=== PATIENT | male | born 1970 | race Caucasian/White ===

== ENCOUNTER 2017-08-07 10:12 | Emergency (ER) | payer BC ==
--- NOTE | 2017-08-07 10:22 | EDPHY ---
HPI/HX/ROS/PE/MDM Narrative: CHIEF COMPLAINT: Left arm dog bite HPI: The patient is a 47 y/o male complaining of a dog bite to his left upper arm 1 hour ago. While he was running, another persons dog tried to bite his face, and ended up biting the back of his left arm. He called the ranger and they are in charge of the case. He is unsure if the dog has had all of its shots. He is unsure if he is up to date on his tetanus vaccine. Denies fever, numbness, weakness, chest pain or other pertinent symptoms. REVIEW OF SYSTEMS: Aside from elements discussed in the HPI, a comprehensive 10-point review of systems was reviewed and is negative. PMH: Denies SOCIAL HISTORY: , lives in [place], works for [employer] PHYSICAL EXAM: General: Patient is alert, in no acute distress. Left arm: Dog bite to left triceps region, some skin break and contusion, no bleeding Neuro: Oriented x3. Normal motor function. Normal sensory function. Portions of this note were transcribed by an ED scribe. I personally performed the history, physical exam, and medical decision making; and confirm the accuracy of the information in the transcribed note. ED Course: Reassessed patient and discussed Augmentin prescription. Return precautions provided; patient is comfortable with this plan. MDM: Uncomplicated dog bite with no NV injur or need for repair. I will place patient on Augmentin prophylaxis. Law enforcement already involved and will be addressing vaccine status. General Time Seen by Provider: 08/07/17 10:20 Initial Vital Signs: Initial Vital Signs Temperature (C) 36.8 C 08/07/17 10:15 Heart Rate 77 08/07/17 10:15 Respiratory Rate 18 08/07/17 10:15 Blood Pressure 140/109 H 08/07/17 10:15 O2 Sat (%) 96 08/07/17 10:15 O2 Delivery Mode Room Air Allergies/Adverse Reactions: No Known Allergies Allergy (Verified 08/07/17 10:14) Home Medications: Medication Instructions Recorded Dimple 03/21/16 Amoxicillin/Clavulanate Pot 875 mg PO BID #10 tab 08/07/17 [Augmentin 875Mg] Beta Randy 08/07/17 Departure - Departure Disposition: Home, Routine, Self-Care Clinical Impression: Dog bite of arm Qualifiers: Encounter type: initial encounter Laterality: left Qualified Code(s): S41.152A - Open bite of left upper arm, initial encounter Contusion of left upper arm Qualifiers: Encounter type: initial encounter Qualified Code(s): S40.022A - Contusion of left upper arm, initial encounter Condition: Good Instructions: Animal Bite (ED), Contusion in Adults (ED) Additional Instructions: Take Augmentin as prescribed. Followup with your primary care provider in the next week for unimproved symptoms. Return to the Emergency Department for fever , redness, discharge from wound, increasing pain or other worsening of condition. Referrals: Bernarda Alexandra MD [Primary Care Provider] - As per Instructions Prescriptions: Amoxicillin/Clavulanate Pot [Augmentin 875Mg] 875 mg PO BID #10 tab Report Scribed for: Brody Arroyo Report Scribed by: Amelia Yi Date of Report: 08/07/17 Time of Report: 10:21
[2017-08-07] MEDS: TDAP ADULT 0.5 ML INJ (BOOSTRIX) IM ONE (11:11)
[2017-08-07 11:20] VITALS: BP 144/76; PULSE 81; RESP 16; TEMP 98.6; O2SAT 98
== END 2017-08-07 11:20 | disposition home or self-care (01) ==
DX: S41.152A Open bite of left upper arm, initial encounter (principal); S40.022A Contusion of left upper arm, initial encounter; Z23 Encounter for immunization; W54.0XXA Bitten by dog, initial encounter

== ENCOUNTER → 2018-02-27 | Outpatient (CLI) | payer OTHER | LOC: CIMAGING 09:38 | PROVIDERS: ATTEND Nurse Practitioner Family | DX: I34.0 Nonrheumatic mitral (valve) insufficiency (principal); I10 Essential (primary) hypertension | CPT/HCPCS: 75571-PO ==